=== PATIENT | male | born 1940 | race Caucasian/White ===

== ENCOUNTER 2019-09-17 05:26 | Day surgery (SDC) | payer OTHER ==
[~2019-09-17] VITALS: Ht 182.9 cm; Wt 88.0 kg
[~2019-09-17 05:26] MED LIST: ACET500 PO; ALLERGY MEDICAT25 MG PO; ATOR40TA PO; BENZ100A PO; Baclofen10 MG PO; COMBIVENT RESPIM4 GM INH; ELIQUIS2.5 MG PO; FINA5 PO; Flovent Diskus50 MCG IH; KAPSPARGO SPRI200 MG PO; LOSA25 PO; OMEPRAZOLE20 MG PO; PACERONE100 MG PO; POTA10T PO; TORSE20 PO
--- NOTE | 2019-09-17 08:50 | NUR ---
ASSUMED CAR OF PT POST HEMOSTASIS. PT IS ALERT AND ORIENTED, PLEASENT AND COOPERATIVE. PT DENIES PAIN, SOB OR NAUSEA. MONITOR A PACED 60, B/P 104/67, AFEBRILE, SPO2 96% RA. R FEMORAL SITE NO SWELLING/HEMATOMA, JAKE DRSG WITH SMALL AMT OF OLD DRAINAGE, TEGADERM DRSG INTACT; RLE PULSES +2 X 2. PT TAKING SIPS OF H2O WITHOUT PROBLEM.
--- NOTE | 2019-09-17 13:20 | NUR ---
PT AMB TO BATHROOM, GAIT STEADY; R GROIN SITE UNCHANGED AFTER ACTIVITY.
--- NOTE | 2019-09-17 14:20 | NUR ---
PT AND RECEIVED DISCHARGE INSTRUCTIONS, MED LIST AND "AFTER CARE" INSTRUCTIONS VERBALIZED GOOD UNDERSTANDING. PT LEFT FACILITY VIA W/C, CONDITION STABLE.
--- NOTE | 2019-09-17 14:29 | NUR ---
PT DRESSED SELF WITH MIN ASSISTANCE, SITE UNCHANGED; IV REMOVED, CANNULA INTACT.
[2019-09-20] MEDS ORDERED: LOSA25 PO (10:58)
[2019-09-20] MEDS ORDERED: POTA10T PO (10:59)
== END 2019-09-17 14:20 | disposition home or self-care (01) ==
LOC: MHTC 05:26
PROC: B201YZZ Plain Radiography of Multiple Coronary Arteries using Other Contrast (ICD-10-PCS; principal; 2019-09-17)
PROC: B206YZZ Plain Radiography of Right and Left Heart using Other Contrast (ICD-10-PCS; principal; 2019-09-17)
PROC: 4A023N8 Measurement of Cardiac Sampling and Pressure, Bilateral, Percutaneous Approach (ICD-10-PCS; principal; 2019-09-17)
PROC: B203YZZ Plain Radiography of Multiple Coronary Artery Bypass Grafts using Other Contrast (ICD-10-PCS; principal; 2019-09-17)
DX: I08.0 Rheumatic disorders of both mitral and aortic valves (principal); I25.10 Atherosclerotic heart disease of native coronary artery without angina pectoris; I12.9 Hypertensive chronic kidney disease with stage 1 through stage 4 chronic kidney disease, or unspecified chronic kidney disease; N18.9 Chronic kidney disease, unspecified; I25.2 Old myocardial infarction; I27.20 Pulmonary hypertension, unspecified; I71.4 Abdominal aortic aneurysm, without rupture; I25.5 Ischemic cardiomyopathy; E78.5 Hyperlipidemia, unspecified; I48.0 Paroxysmal atrial fibrillation; Z95.1 Presence of aortocoronary bypass graft; Z95.810 Presence of automatic (implantable) cardiac defibrillator; Z79.01 Long term (current) use of anticoagulants; Z79.899 Other long term (current) drug therapy; Z87.891 Personal history of nicotine dependence
CPT/HCPCS: 93457; 99152; 99153; C1769; C1894; J1644; J2250; J3010; J7030; Q9967

== ENCOUNTER 2019-09-23 10:16 | Day surgery (SDC) | payer OTHER ==
[~2019-09-23] VITALS: Ht 182.9 cm; Wt 79.9 kg
--- NOTE | 2019-09-23 12:28 | NUR ---
PT AWAKE POST PROCEDURE. VISITING WITH SPOUSE. DENIES DISCOMFORT. CALL LIGHT IN REACH.
--- NOTE | 2019-09-23 12:44 | NUR ---
IV DC'D, CATH INTACT. PT AND SPOUSE VERBALIZED UNDERSTANDING OF DC INSTRUCTIONS AND FOLLOW UP INFO. PT OUT TO CAR VIA W/C BY ESCORT. WILL FOLLOW UP WITH DR MARIN INSTRUCTED
== END 2019-09-23 22:49 | disposition home or self-care (01) ==
LOC: MHTC 10:16
DX: I08.0 Rheumatic disorders of both mitral and aortic valves (principal); I25.10 Atherosclerotic heart disease of native coronary artery without angina pectoris; I12.9 Hypertensive chronic kidney disease with stage 1 through stage 4 chronic kidney disease, or unspecified chronic kidney disease; N18.9 Chronic kidney disease, unspecified; I25.5 Ischemic cardiomyopathy; I48.0 Paroxysmal atrial fibrillation; I70.0 Atherosclerosis of aorta; E78.5 Hyperlipidemia, unspecified; Z95.5 Presence of coronary angioplasty implant and graft; Z95.810 Presence of automatic (implantable) cardiac defibrillator; Z79.899 Other long term (current) drug therapy; Z79.01 Long term (current) use of anticoagulants; Z87.891 Personal history of nicotine dependence
CPT/HCPCS: 93312; 93325; J2250; J2704; J7120

== ENCOUNTER 2020-02-29 08:27 | Inpatient (IN) | payer OTHER ==
[~2020-02-29] VITALS: Ht 182.9 cm; Wt 80.9 kg
[2020-02-29] MEDS ORDERED: ACET500 PO (08:40)
[2020-02-29] MEDS ORDERED: COMBIVENT RESPIM4 GM INH (08:41)
[2020-02-29] MEDS ORDERED: ELIQUIS2.5 MG PO (08:41)
[2020-02-29] MEDS ORDERED: ATOR20 PO (08:41)
[2020-02-29] MEDS ORDERED: Amiodarone HCl200 MG PO (08:41)
[2020-02-29] MEDS ORDERED: BENZ100A PO (08:42)
[2020-02-29] MEDS ORDERED: BACL10 PO (08:42)
[2020-02-29] MEDS ORDERED: MEN PHOR ANTI I (08:43)
[2020-02-29] MEDS ORDERED: GENTEAL TEARS 015 ML BOTHEYES (08:44)
[2020-02-29] MEDS ORDERED: ZOSTRIX HP56.6 GM TOP (08:44)
[2020-02-29] MEDS ORDERED: DICLOFENAC SOD100 G1 TOP (08:45)
[2020-02-29] MEDS ORDERED: FLUT.05NI (08:46)
[2020-02-29] MEDS ORDERED: FINA5 PO (08:46)
[2020-02-29] MEDS ORDERED: Loratadine10 MG PO (08:47)
[2020-02-29] MEDS ORDERED: METO100ER PO (08:47)
[2020-02-29] MEDS ORDERED: LOSA25 PO (08:47)
[2020-02-29] MEDS ORDERED: TERA5 PO (08:48)
[2020-02-29] MEDS ORDERED: TORSE20 PO (08:48)
[2020-02-29] MEDS ORDERED: OMEP20ER PO (08:48)
[2020-02-29] MEDS ORDERED: CENTRUM SILVER1 EAC2 PO (08:48)
[2020-02-29] MEDS ORDERED: POTA10T PO (08:48)
[2020-02-29] MEDS ORDERED: MAGNESIUM GLU27.5 MG PO (08:49)
[2020-02-29] MEDS ORDERED: ZINC220 PO (08:49)
[2020-02-29] MEDS ORDERED: OYSTER SHELL 51 EACH PO (08:49)
[2020-02-29 09:12] LABS: BASOPHILS ABSOLUTE AUTO 0.05 K/mm3 (0.00-0.23); BASOPHILS PERCENT AUTO 1 % (0-2); EOSINOPHILS ABSOLUTE AUTO 0.09 K/mm3 (0.00-0.68); EOSINOPHILS PERCENT AUTO 1 % (0-6); Hematocrit 41.5 % (37.0-53.0); Hemoglobin 13.6 g/dL (13.5-17.5); IMMATURE GRAN ABSOLUTE AUTO 0.02 K/mm3 (0.00-0.10); IMMATURE GRAN PERCENT AUTO 0 % (0-1); LYMPHOCYTES ABSOLUTE AUTO 0.84 K/mm3 (0.84-5.20); LYMPHOCYTES PERCENT AUTO 12 % (21-46); MONOCYTES ABSOLUTE AUTO 1.09 K/mm3 (0.16-1.47); MONOCYTES PERCENT AUTO 16 % (4-13); Mean Corpuscular HGB 31.1 pg (26.0-34.0); Mean Corpuscular HGB Conc 32.8 g/dL (31.5-36.5); Mean Corpuscular Volume 95 fL (80-100); Mean Platelet Volume 11.5 fL (9.1-12.4); NEUTROPHILS ABSOLUTE AUTO 4.85 K/mm3 (1.96-9.15); NEUTROPHILS PERCENT AUTO 70 % (41-73); Platelet Count 163 K/mm3 (150-400); RDW Coefficient Variation 14.1 % (11.7-14.2); Red Blood Cell Count 4.37 M/mm3 (4.30-5.90); White Blood Cell Count 6.94 K/mm3 (4.00-11.30)
[2020-02-29 09:33] LABS: Albumin, Blood 3.7 g/dL (3.4-5.0); Albumin/Globulin Ratio 1.2 (0.8-1.8); Bilirubin, Total 1.4 mg/dL (0.1-1.0); Bun/Creatinine Ratio 26.2 (12.0-20.0); Calcium, Blood 8.9 mg/dL (8.5-10.1); Creatinine, Blood 1.49 mg/dL (0.60-1.20); Potassium, Blood 4.6 mmol/L (3.5-5.5); Total Protein, Blood 6.7 g/dL (6.4-8.2); Troponin I 0.322 ng/mL (0.000-0.040)
--- NOTE | 2020-02-29 14:22 | NUR ---
PT RECEIVED FROM [facility] VIA STRETCHER REPORT RECEIVED FROM KARLA STONE. PT IS HERE FOR CHF EXACERBATION. PT IS AMBULATORY SBA FOR TRANSFERS, ALERT AND ORIENTED X4, ABLE TO MAKE NEEDS KNOWN. SATS ABOVE 90% ON ROOMAIR, HRR 100% PACED AT 65, PT DENIES CHEST PAIN/PRESSURE, SOB WITH EXERTION NOTED. AFEBRILE. PT ON IV LASIX FOR DIURETICS. WILL MONITOR
--- NOTE | 2020-02-29 18:37 | NUR ---
PT SUMMARY: (SEE PREVIOUS NOTES) PT HAS BEEN COOPERATIVE WITH CARES, AMBULATORY IN THE ROOM, STILL HAS SOB WITH EXERTION, SATS HAS BEEN ABOVE 95% ON ROOMAIR. HRR STILL 100% PACED THE REST OF THE VITALS STABLE. DENIES CHEST PAIN/PRESSURE. ABLE TO MAKE NEEDS KNOWN. PT CURRENTLY RESTING IN BED CALL LIGHTS WITHIN REACH WILL REPORT TO ONCOMING SHIFT.
--- NOTE | 2020-02-29 19:40 | NUR ---
PATIENT IRRITABLE THAT HIS HEARING AID BATTERIES WENT . PATIENT WAS YELLING ON THE PHONE.
--- NOTE | 2020-02-29 21:05 | NUR ---
ASSUMED CARE OF PATIENT AT APPROXIMATELY 1910 FROM GATITO Jiménez RN. PATIENT ALERT AND ORIENTED X4; HARD OF HEARING; IRRITABLE AT TIMES. PATIENT'S SPOUSE BROUGHT IN HEARING AID BATTERIRES, DENTURE CREAM AND HOME MEDS IN SEVEN DAY PILL DIVIDER; PATIENT EDUCATED NOT TO TAKE HOME MEDS; PATIENT VERBALLY AGREED NOT TO TAKE HOME MEDS. PATIENT DENIES PAIN, NUMBNESS, TINGLING, DIZZINESS OR NAUSEA. DIURESING PATIENT. PIV S/L. 100% PACED ON TELE; OXYGEN SATURATION ABOVE 90% ON ROOM AIR. PATIENT CURRENTLY RESTING IN BED; CALL LIGHT IN REACH; BED IN LOWEST POSISTION; BED ALARM ON; WILL CONTINUE TO MONITOR AND ASSESS UNTIL END OF SHIFT.
[2020-03-01 03:52] LABS: Hemoglobin 12.5 g/dL (13.5-17.5); Mean Corpuscular HGB 30.7 pg (26.0-34.0); Mean Corpuscular HGB Conc 32.1 g/dL (31.5-36.5); Mean Corpuscular Volume 96 fL (80-100); Mean Platelet Volume 11.4 fL (9.1-12.4); Platelet Count 140 K/mm3 (150-400); RDW Coefficient Variation 14.1 % (11.7-14.2); RDW Standard Deviation 49.5 fL (35.1-46.3); Red Blood Cell Count 4.07 M/mm3 (4.30-5.90); White Blood Cell Count 7.56 K/mm3 (4.00-11.30)
[2020-03-01 04:14] LABS: Bun/Creatinine Ratio 28.2 (12.0-20.0); Calcium, Blood 8.9 mg/dL (8.5-10.1); Creatinine, Blood 1.49 mg/dL (0.60-1.20); Potassium, Blood 3.9 mmol/L (3.5-5.5)
--- NOTE | 2020-03-01 06:06 | NUR ---
PATIENT SLEPT ABOUT FOUR HOURS OFF AND ON; INDEPENDENT IN ROOM TO BATHROOM; UP TO CHAIR; UP TO RECLINER. REPORTS HE GET SOB AND CAN'T FALL ASLEEP. VSS. WILL CONTINUE TO MONITOR AND ASSESS UNTIL END OF SHIFT.
--- NOTE | 2020-03-01 17:40 | NUR ---
PT SUMMARY: PT CONTINUES ON DIURETIC MEDICATION FOR CHF EXACERBATION, LASIX INCREASED TO 40 MG THIS AFTERNOON. VITALS HAS BEEN STABLE HRR 100% PACED AT 70'S, BP SYSTOLIC 110'S. ALERT AND ORIENTED X4, INDEPENDENT IN THE ROOM. PT WAS ASSISTED TO AMBULATE IN THE UNIT PER PT'S REQUEST, PT TOLERATED WELL MILD SOB, PT HAS BEEN RECEIVING BREATHING TX PER RT AND WAS EFFECTIVE PER PT. DISCUSSED HIS ALCOHOL INTAKE, DAILY WINE DRINKER, DRINKS A GLASS OR TWO AT NIGHT LAST INTAKE WAS THE NIGHT BEFORE YESTERDAY, DR BENZ ADVISED TO WATCH PT FOR NOW DOES NOT RECOMMEND CIWA. PT DOES NOT SHOW ANY SIGNS OF WITHDRAWAL AT THIS TIME. PT ABLE TO AMKE NEEDS KNOWN, COOPERATIVE WITH CARES, CALL LIGHTS WITHIN REACH WILL MONITOR
--- NOTE | 2020-03-01 21:30 | NUR ---
ASSUMED CARE OF PATIENT AT APPROXIMATELY 1905 FROM GATITO Jiménez RN. PATIENT ALERT AND ORIENTED X4; HARD OF HEARING; IRRITABLE AT TIMES. PATIENT REPORTED HE IS FRUSTRATED WITH STAYING ANOTHER NIGHT AND NOT GETTING MORE DUIRETIC; REPORTS "I DON'T WANT TO STAY HERE FOR ANOTHER 4 OR 5 DAYS". PATIENT DENIES PAIN, NUMBNESS, TINGLING, DIZZINESS OR NAUSEA. PATIENT REPORTS HE HAD A HEADACHE LAST NIGHT AND TYLENOL DOESN'T WORK; REQUESTED ALEVE. PATIENT ALSO REQUESTED SLEEP AID FOR MIDNIGHT AFTER HE GETS HIS NEXT BREATHING TX. PIV S/L. 100% PACED ON TELE; OXYGEN SATURATION ABOVE 90% ON ROOM AIR. PATIENT CURRENTLY RESTING IN BED; CALL LIGHT IN REACH; BED IN LOWEST POSISTION; BED ALARM ON; WILL CONTINUE TO MONITOR AND ASSESS UNTIL END OF SHIFT.
--- NOTE | 2020-03-01 21:44 | NUR ---
CALLED BLAYNE ABDUL REGARDING PATIENT'S REQUEST FOR ALEVE FOR HEADACHES, SLEEP AID AND VICKS VAPOR RUB; ORDERS RECIEVED. NO ORDERS FOR ALEVE BECAUSE IT IS CONTRAINDICATED FOR CHF PATIENTS. ALSO DISCUSSED PATIENT HX OF DRINKING WINE EVERYDAY; LAST DRINK 02/27 AND INCREASED IRRITABILITY; ORDERS FOR CIWA; CALL FOR INCREASED CIWAS.
--- NOTE | 2020-03-02 06:14 | NUR ---
PATIENT SLEPT ABOUT FIVE HOURS LAST NIGHT. VSS. WILL CONTINUE TO MONITOR AND ASSESS UNTIL END OF SHIFT.
[2020-03-02 06:48] LABS: Hematocrit 37.9 % (37.0-53.0); Hemoglobin 12.5 g/dL (13.5-17.5); Mean Corpuscular HGB 31.2 pg (26.0-34.0); Mean Corpuscular Volume 95 fL (80-100); Mean Platelet Volume 11.5 fL (9.1-12.4); Platelet Count 135 K/mm3 (150-400); RDW Coefficient Variation 14.3 % (11.7-14.2); RDW Standard Deviation 49.8 fL (35.1-46.3); Red Blood Cell Count 4.01 M/mm3 (4.30-5.90); White Blood Cell Count 6.65 K/mm3 (4.00-11.30)
[2020-03-02 06:58] LABS: Bun/Creatinine Ratio 27.6 (12.0-20.0); Calcium, Blood 9.1 mg/dL (8.5-10.1); Creatinine, Blood 1.23 mg/dL (0.60-1.20)
--- NOTE | 2020-03-02 14:42 | NUR ---
NURSING PCU TRANSFER SUMMARY: Pt changed to medical status w/tele. Room assignment received, rpt provided to accepting RN. No s/s of acute distress at this time, pt to be escorted to medical unit via w/c accompanied by PCT. Monitor until xfer is completed.
--- NOTE | 2020-03-02 17:47 | NUR ---
SHIFT SUMMARY PT ARRIVED TO THE FLOOR MID-AFTERNOON VIA WHEELCHAIR. PT TRANSFERED TO THE BED INDEPENDENTLY. PT VERY [place] BAND. PT ALERT AND COOPERATIVE WITH CARE. PT NAPPED IN BED THIS AFTERNOON. PT DENIES DIFFICULTY BREATHING SINCE ARRIVING ON THE UNIT. PT CURRENTLY SITTING ON SIDE OF THE BED EATING DINNER.
--- NOTE | 2020-03-03 03:11 | NUR ---
SHIFT SUMMARY AWAKE AT INTERVALS, THEN HE FELT HE COULD NOT GO TO SLEEP, REQUESTED SLEEP MED, MD CALLED AND ORDERS FOR MELATONIN RECEIVED. MED GIVEN AND SEEMS EFFECTIVE PT IS RESTING QUIELTY OF THIS SRITING. CALL LIGHT IN REACH.
[2020-03-03 05:30] LABS: BASOPHILS ABSOLUTE AUTO 0.03 K/mm3 (0.00-0.23); BASOPHILS PERCENT AUTO 0 % (0-2); EOSINOPHILS ABSOLUTE AUTO 0.15 K/mm3 (0.00-0.68); EOSINOPHILS PERCENT AUTO 2 % (0-6); Hematocrit 38.8 % (37.0-53.0); Hemoglobin 12.3 g/dL (13.5-17.5); IMMATURE GRAN ABSOLUTE AUTO 0.02 K/mm3 (0.00-0.10); IMMATURE GRAN PERCENT AUTO 0 % (0-1); LYMPHOCYTES ABSOLUTE AUTO 0.52 K/mm3 (0.84-5.20); LYMPHOCYTES PERCENT AUTO 6 % (21-46); MONOCYTES ABSOLUTE AUTO 1.13 K/mm3 (0.16-1.47); MONOCYTES PERCENT AUTO 14 % (4-13); Mean Corpuscular HGB 30.8 pg (26.0-34.0); Mean Corpuscular HGB Conc 31.7 g/dL (31.5-36.5); Mean Corpuscular Volume 97 fL (80-100); Mean Platelet Volume 11.3 fL (9.1-12.4); NEUTROPHILS ABSOLUTE AUTO 6.46 K/mm3 (1.96-9.15); NEUTROPHILS PERCENT AUTO 78 % (41-73); Platelet Count 135 K/mm3 (150-400); RDW Coefficient Variation 14.6 % (11.7-14.2); RDW Standard Deviation 51.4 fL (35.1-46.3); White Blood Cell Count 8.31 K/mm3 (4.00-11.30)
[2020-03-03 05:44] LABS: Anion Gap 7 mmol/L (6-16); Blood Urea Nitrogen 28 mg/dL (8-24); Bun/Creatinine Ratio 25.5 (12.0-20.0); CO2, Blood 28 mmol/L (21-32); Calcium, Blood 9.2 mg/dL (8.5-10.1); Chloride, Blood 108 mmol/L (98-108); Glomerular Filtration Rate >60 (60-); Glucose, Blood 102 mg/dL (70-99); Potassium, Blood 3.9 mmol/L (3.5-5.5); Sodium, Blood 143 mmol/L (136-145)
--- NOTE | 2020-03-03 19:10 | NUR ---
SHIFT SUMMARY: A&O X 3, PLEASANT, TUSCARORA. TELEMETRY SHOWS PACED RHYTHM AT 80. LUNGS DIM THROUGHOUT, ON ROOM AIR. C/O BEING SOB AND [place], BUT WAS ABLE TO AMBULATE AROUND UNIT WITH FWW X 2 AND TOLERATED WELL. USING URINAL, IS AWARE OF STRICT I&O. TOLERATING DIET. HAS MELATONIN FOR SLEEP TONIGHT; HE DID NOT WANT TO CHANGE TO SOMETHING ELSE. HAD CARDIAC ECHO, RESULTS PENDING. IS HOPING TO D/C HOME TOMORROW.
--- NOTE | 2020-03-03 23:53 | NUR ---
03/03/20 2311 INSTRUMENT LENS GENERATORPATRICIA, CALLED RN TO NOTIFY THAT PT HAD 12 BEATS OF V.TACH. PT WAS SLEEPING AND ASYMPTOMATIC. VITALS STABLE. RN DISCUSSED EVENT WITH FLOOR HELPERKINZA. NO CALL TO MD AT THIS TIME. WILL CONTINUE TO MONITOR PT.
[2020-03-04 05:53] LABS: Albumin, Blood 3.2 g/dL (3.4-5.0); Anion Gap 6 mmol/L (6-16); Blood Urea Nitrogen 27 mg/dL (8-24); Bun/Creatinine Ratio 22.1 (12.0-20.0); CO2, Blood 27 mmol/L (21-32); Calcium, Blood 9.1 mg/dL (8.5-10.1); Chloride, Blood 105 mmol/L (98-108); Creatinine, Blood 1.22 mg/dL (0.60-1.20); Glomerular Filtration Rate >60 (60-); Glucose, Blood 98 mg/dL (70-99); Magnesium, Blood 2.1 mg/dL (1.6-2.4); Phosphorus, Blood 3.4 mg/dL (2.5-4.9); Potassium, Blood 3.9 mmol/L (3.5-5.5); Sodium, Blood 138 mmol/L (136-145)
--- NOTE | 2020-03-04 07:31 | NUR ---
03/04/20 0610 PT HAD 12 BEATS OF V.TACH LAST NIGHT AND WAS ASYMPTOMATIC. ON-CALL HOSPITALIST WAS INFORMED AND ORDERED MAG. LEVEL WITH LABS. MAG LEVEL WNL THIS AM. PT CHEERFUL AND DRINKING COFFEE NOW. SLEPT POORLY HE STATES FOR UNKNOWN REASONS.
[2020-03-04] MEDS ORDERED: METO50ER PO (16:20)
--- NOTE | 2020-03-04 17:00 | NUR ---
PATIENT DISCHARGED TO HOME AT 1641. HAS ALL BELONGINGS INCLUDING CELL PHONE. TAKEN DOWNSTAIRS BY W/C, PICKED UP BY SPOUSE.
== END 2020-03-04 16:41 | disposition home or self-care (01) | DRG 281 ==
LOC: ER 08:27 → PCU 10:44 → MEDS 03-02 15:57
PROVIDERS: Emergency Medicine; Internal Medicine; ADMIT Internal Medicine
DX: I50.23 Acute on chronic systolic (congestive) heart failure (principal); I21.A1 Myocardial infarction type 2; I42.0 Dilated cardiomyopathy; I35.0 Nonrheumatic aortic (valve) stenosis; I95.9 Hypotension, unspecified; I25.10 Atherosclerotic heart disease of native coronary artery without angina pectoris; N18.3 Chronic kidney disease, stage 3 (moderate); I48.0 Paroxysmal atrial fibrillation; Z51.5 Encounter for palliative care; I71.2 Thoracic aortic aneurysm, without rupture; J44.9 Chronic obstructive pulmonary disease, unspecified; R54 Age-related physical debility; Z95.1 Presence of aortocoronary bypass graft; Z87.891 Personal history of nicotine dependence
CPT/HCPCS: 36415; 71045; 80048; 80053; 80069; 83735; 83880; 84484; 85025; 85027; 93005; 93010; 94640; 94760; 97116; 97161; 97165; 97535; 99285-25; A9270-GY; C8929; J1940; Q9957

== ENCOUNTER 2020-03-19 09:11 | Inpatient (IN) | payer OTHER ==
[~2020-03-19] VITALS: Ht 182.9 cm; Wt 72.5 kg
[~2020-03-19 09:11] MED LIST changes: +ATOR20 PO; +Amiodarone HCl200 MG PO; +BACL10 PO; +CENTRUM SILVER1 EAC2 PO; +DICLOFENAC SOD100 G1 TOP; +FLUT.05NI; +GENTEAL TEARS 015 ML BOTHEYES; +Loratadine10 MG PO; +MAGNESIUM GLU27.5 MG PO; +MEN PHOR ANTI I; +METO100ER PO; +METO50ER PO; +OMEP20ER PO; +OYSTER SHELL 51 EACH PO; +TERA5 PO; +ZINC220 PO; +ZOSTRIX HP56.6 GM TOP
[2020-03-19] MEDS ORDERED: Isosorbide Mono30 MG PO (09:41)
[2020-03-19] MEDS ORDERED: SPIR25 PO (09:43)
[2020-03-19 09:50] LABS: BASOPHILS ABSOLUTE AUTO 0.02 K/mm3 (0.00-0.23); BASOPHILS PERCENT AUTO 0 % (0-2); EOSINOPHILS ABSOLUTE AUTO 0.01 K/mm3 (0.00-0.68); EOSINOPHILS PERCENT AUTO 0 % (0-6); Hematocrit 37.6 % (37.0-53.0); Hemoglobin 12.6 g/dL (13.5-17.5); IMMATURE GRAN ABSOLUTE AUTO 0.04 K/mm3 (0.00-0.10); IMMATURE GRAN PERCENT AUTO 0 % (0-1); LYMPHOCYTES ABSOLUTE AUTO 0.34 K/mm3 (0.84-5.20); LYMPHOCYTES PERCENT AUTO 3 % (21-46); MONOCYTES ABSOLUTE AUTO 1.64 K/mm3 (0.16-1.47); MONOCYTES PERCENT AUTO 16 % (4-13); Mean Corpuscular HGB Conc 33.5 g/dL (31.5-36.5); Mean Corpuscular Volume 92 fL (80-100); Mean Platelet Volume 11.1 fL (9.1-12.4); NEUTROPHILS ABSOLUTE AUTO 8.27 K/mm3 (1.96-9.15); NEUTROPHILS PERCENT AUTO 80 % (41-73); Platelet Count 212 K/mm3 (150-400); RDW Coefficient Variation 14.2 % (11.7-14.2); Red Blood Cell Count 4.07 M/mm3 (4.30-5.90); White Blood Cell Count 10.32 K/mm3 (4.00-11.30)
[2020-03-19 10:14] LABS: Albumin, Blood 3.4 g/dL (3.4-5.0); Albumin/Globulin Ratio 1.3 (0.8-1.8); Bilirubin, Total 2.8 mg/dL (0.1-1.0); Bun/Creatinine Ratio 26.4 (12.0-20.0); Calcium, Blood 8.9 mg/dL (8.5-10.1); Creatinine, Blood 2.5 mg/dL (0.60-1.20); Globulin, Blood 2.6 g/dL (2.2-4.0); Potassium, Blood 4.4 mmol/L (3.5-5.5); Troponin I 0.107 ng/mL (0.000-0.040)
--- NOTE | 2020-03-19 12:33 | NUR ---
ED Palliative Care Consult Spoke with Dr Carmona and discussed case. 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 Pt may benefit from discussion regarding Advanced Care Planning and code status. Plan for Pt to be admitted to hospital. Pt is resting on gurny upon arrival. Pt is moderately [place] and hears best on his right. Pt denies pain at this time. Engaged in therapeutic discussion regarding Pt's wishes for life sustaining measures. Educated on life sustaining measures including risk factors and implications. Difficult to assess Pt's understanding of education and does not respond to information given. Pt reports no questions regarding information. Pt reports being ok with CPR and intubation. Palliative Care will plan to F/U with Pt for further therapeutic visits and further advanced care planning once admitted to the floor.
[2020-03-19 14:57] LABS: Source, Urine Catheter
[2020-03-19 15:12] LABS: Bilirubin, Urine Neg (Neg); Blood, Urine Neg (Neg); Glucose Qualitative, Urine Neg (Neg); Ketones, Urine Neg (Neg); Leukocyte Esterase, Urine Neg (Neg); Nitrite, Urine Neg (Neg); Protein, Urine Neg (Neg); Specific Gravity, Urine 1.015 (1.003-1.022); Urobilinogen, Urine NORM (Normal)
[2020-03-19 15:23] LABS: Appearance, Urine Clear (Clear); Color, Urine Yellow (P-Yellow)
--- NOTE | 2020-03-19 16:44 | NUR ---
SHIFT NOTE PT ARRIVED FROM WITH ELEVATED BNP AND DECREASED KIDNEY FUNCTION. PT A/O X4, ANSWERING QUESTIONS APPROPRIATELY. PT WITH INTERMITTENT INCREASE OF SOB AND ANXIETY. DR BROOKS WAS IN TO DISCUSS PT'S CODE STATUS PT HAS WORSENING CHF AND NOW KIDNEY FAILURE. PT REQUESTS THAT HE STAYS A FULL CODE. PT SPO2 REMAINS 98-100% ON RA. PT RECIEVED ADDITIONAL DIURETICS FPR CHF, AND ABRAHAM WAS PLACED FOR STRICT I&Os, BLADDER SCAN REVEALED 200ML IN BLADDER. SKIN IS INTACT. RT HAND IV FLUSHES WELL. ABRAHAM IS DRAINING TO GRAVITY.
[2020-03-19] MEDS ORDERED: NAPR220 PO (20:06)
--- NOTE | 2020-03-20 06:02 | NUR ---
spoke to hospitalist regarding the patient s home medications in order to get them restarted. Patient was having trouble sleeping, an order of 5 mg of melatonin for bedtime was ordered. Patient was psychologically stable and in no distress throughout the shift. The patient s vitals have been stable for the entire shift, refer to charting.
[2020-03-20 06:08] LABS: BASOPHILS ABSOLUTE AUTO 0.03 K/mm3 (0.00-0.23); BASOPHILS PERCENT AUTO 0 % (0-2); EOSINOPHILS ABSOLUTE AUTO 0.05 K/mm3 (0.00-0.68); EOSINOPHILS PERCENT AUTO 1 % (0-6); Hematocrit 34.5 % (37.0-53.0); Hemoglobin 11.5 g/dL (13.5-17.5); IMMATURE GRAN ABSOLUTE AUTO 0.02 K/mm3 (0.00-0.10); IMMATURE GRAN PERCENT AUTO 0 % (0-1); LYMPHOCYTES ABSOLUTE AUTO 0.36 K/mm3 (0.84-5.20); LYMPHOCYTES PERCENT AUTO 5 % (21-46); MONOCYTES ABSOLUTE AUTO 1.59 K/mm3 (0.16-1.47); MONOCYTES PERCENT AUTO 21 % (4-13); Mean Corpuscular HGB 30.7 pg (26.0-34.0); Mean Corpuscular HGB Conc 33.3 g/dL (31.5-36.5); Mean Corpuscular Volume 92 fL (80-100); Mean Platelet Volume 11.2 fL (9.1-12.4); NEUTROPHILS ABSOLUTE AUTO 5.55 K/mm3 (1.96-9.15); NEUTROPHILS PERCENT AUTO 73 % (41-73); Platelet Count 195 K/mm3 (150-400); RDW Coefficient Variation 14.2 % (11.7-14.2); RDW Standard Deviation 47.4 fL (35.1-46.3); Red Blood Cell Count 3.75 M/mm3 (4.30-5.90)
[2020-03-20 06:27] LABS: Bun/Creatinine Ratio 29.5 (12.0-20.0); Calcium, Blood 8.9 mg/dL (8.5-10.1); Creatinine, Blood 2.27 mg/dL (0.60-1.20); Potassium, Blood 3.7 mmol/L (3.5-5.5)
--- NOTE | 2020-03-20 16:57 | NUR ---
SHIFT NOTE PT HAS BEEN SITTING IN BEDSIDE CHAIR T/O THE SHIFT. PT WITH DECREASE IN SOB. HAS HAD LARGE AMT OF URINE OUTPUT. PT IS VERY [place] HEARING, HAS BEEN ON PHONE INTERMITTENTLY WITH FAMILY T/O THE DAY. PT DENIES CP, REPORTS IMPROVED SOB. SLIGHT EDEMA NOTED TO LOWER EXTREMITIES, WHICH IS SLIGHTLY WORSE TO LT LEG BUT IS NON-PITTING IN BILAT LEGS. ABRAHAM CONTINUES TO DRAIN TO GRAVITY IN ROOM. PT SITTING IN BEDSIDE CHAIR WATCHING TV
[2020-03-21 04:18] LABS: Bun/Creatinine Ratio 36.8 (12.0-20.0); Calcium, Blood 9.1 mg/dL (8.5-10.1); Creatinine, Blood 1.82 mg/dL (0.60-1.20); Potassium, Blood 3.3 mmol/L (3.5-5.5)
--- NOTE | 2020-03-21 05:05 | NUR ---
END OF SHIFT NO ACUTE CHANGES THIS SHIFT. VSS. PT COOPERATIVE AND CHEERFUL WITH STAFF. USES CALL LIGHT APPROPRIATELY. EXTREMELY HARD OF HEARING, DOES WELL WITH DEEP VOICES. HIGH PITCH SOFT MURMUR WITH HEART AUSCULTATION. ABRAHAM REMAINS PATENT AND DRAINING, LARGE OUTPUT. PT DENYING CP AND SOB THIS SHIFT. HAS BEEN RESTING OFF AND ON T/O THE SHIFT. WILL CONTINUE TO MONITOR UNTIL SHIFT CHANGE.
[2020-03-21] MEDS ORDERED: FURO80 PO (10:28)
[2020-03-21] MEDS ORDERED: FAMO10 PO (10:29)
[2020-03-21] MEDS ORDERED: METO5 PO (10:29)
[2020-03-21] MEDS ORDERED: SENN187 PO (10:30)
--- NOTE | 2020-03-21 13:13 | NUR ---
PT D/C WITH ALL BELONGINGS. IV REMOVED AND PRESSURE DRESSED. PT EXPRESSED UNDERSTANDING OF DC TEACJHING AND MEDCIATION CHANGE
== END 2020-03-21 12:11 | disposition home or self-care (01) | DRG 682 ==
LOC: ER 09:11 → PCU 09:12
PROVIDERS: Emergency Medicine; ADMIT Internal Medicine
DX: N17.9 Acute kidney failure, unspecified (principal); I50.43 Acute on chronic combined systolic (congestive) and diastolic (congestive) heart failure; I13.0 Hypertensive heart and chronic kidney disease with heart failure and stage 1 through stage 4 chronic kidney disease, or unspecified chronic kidney disease; E87.1 Hypo-osmolality and hyponatremia; I42.0 Dilated cardiomyopathy; I35.0 Nonrheumatic aortic (valve) stenosis; E87.6 Hypokalemia; N18.3 Chronic kidney disease, stage 3 (moderate); I71.2 Thoracic aortic aneurysm, without rupture; D63.1 Anemia in chronic kidney disease; R79.89 Other specified abnormal findings of blood chemistry; J44.9 Chronic obstructive pulmonary disease, unspecified; I48.0 Paroxysmal atrial fibrillation; I05.0 Rheumatic mitral stenosis; M19.90 Unspecified osteoarthritis, unspecified site; N40.0 Benign prostatic hyperplasia without lower urinary tract symptoms; I25.10 Atherosclerotic heart disease of native coronary artery without angina pectoris; Z95.0 Presence of cardiac pacemaker; Z95.1 Presence of aortocoronary bypass graft; Z87.891 Personal history of nicotine dependence
CPT/HCPCS: 36415; 51703; 71046; 76770; 80048; 80053; 81003; 83880; 84484; 85025; 93005; 93010; 94760; 96374; 99285-25; A9270; A9270-GY; J1940

== ENCOUNTER 2020-03-29 06:15 | Emergency (ER) | payer OTHER ==
[~2020-03-29] VITALS: Ht 182.9 cm; Wt 72.6 kg
[~2020-03-29 06:15] MED LIST changes: +FAMO10 PO; +FURO80 PO; +Isosorbide Mono30 MG PO; +METO5 PO; +NAPR220 PO; +SENN187 PO; +SPIR25 PO
[2020-03-29 07:17] LABS: BASOPHILS ABSOLUTE AUTO 0.02 K/mm3 (0.00-0.23); BASOPHILS PERCENT AUTO 0 % (0-2); EOSINOPHILS ABSOLUTE AUTO 0.01 K/mm3 (0.00-0.68); EOSINOPHILS PERCENT AUTO 0 % (0-6); Hematocrit 45.9 % (37.0-53.0); Hemoglobin 15.3 g/dL (13.5-17.5); IMMATURE GRAN ABSOLUTE AUTO 0.04 K/mm3 (0.00-0.10); IMMATURE GRAN PERCENT AUTO 1 % (0-1); LYMPHOCYTES ABSOLUTE AUTO 0.48 K/mm3 (0.84-5.20); LYMPHOCYTES PERCENT AUTO 6 % (21-46); MONOCYTES ABSOLUTE AUTO 1.32 K/mm3 (0.16-1.47); MONOCYTES PERCENT AUTO 16 % (4-13); Mean Corpuscular HGB 29.6 pg (26.0-34.0); Mean Corpuscular HGB Conc 33.3 g/dL (31.5-36.5); Mean Platelet Volume 11.6 fL (9.1-12.4); NEUTROPHILS ABSOLUTE AUTO 6.46 K/mm3 (1.96-9.15); NEUTROPHILS PERCENT AUTO 78 % (41-73); Platelet Count 228 K/mm3 (150-400); RDW Coefficient Variation 14.1 % (11.7-14.2); RDW Standard Deviation 45.1 fL (35.1-46.3); Red Blood Cell Count 5.17 M/mm3 (4.30-5.90); White Blood Cell Count 8.33 K/mm3 (4.00-11.30)
[2020-03-29 07:21] LABS: Bun/Creatinine Ratio 42.3 (12.0-20.0); Calcium, Blood 9.6 mg/dL (8.5-10.1); Creatinine, Blood 2.13 mg/dL (0.60-1.20); Mean Corpuscular Volume 89 fL (80-100); Potassium, Blood 3.3 mmol/L (3.5-5.5)
[2020-03-29] MEDS ORDERED: ONDA4ODT MM (08:21)
== END 2020-03-29 11:37 | disposition home or self-care (01) ==
LOC: ER 06:15
PROVIDERS: Emergency Medicine
DX: S29.012A Strain of muscle and tendon of back wall of thorax, initial encounter (principal); S39.012A Strain of muscle, fascia and tendon of lower back, initial encounter; R53.1 Weakness; E86.0 Dehydration; R11.2 Nausea with vomiting, unspecified; E87.6 Hypokalemia; I95.9 Hypotension, unspecified; Z79.899 Other long term (current) drug therapy; J44.9 Chronic obstructive pulmonary disease, unspecified; N40.0 Benign prostatic hyperplasia without lower urinary tract symptoms; I48.0 Paroxysmal atrial fibrillation; I11.0 Hypertensive heart disease with heart failure; I50.40 Unspecified combined systolic (congestive) and diastolic (congestive) heart failure; Z87.891 Personal history of nicotine dependence; W19.XXXA Unspecified fall, initial encounter
CPT/HCPCS: 36415; 72080; 80048; 85025; 96361; 96374; 99284-25; J2405; J7030